=== PATIENT | female | born 1980 ===

== ENCOUNTER 2016-05-27 15:03 | Emergency (ER) | payer OTHER ==
[2016-05-27 15:03] VITALS: BMI 52.4
[2016-05-27 15:08] VITALS: TEMP 98.4
[2016-05-27] MEDS ORDERED: Albuterol-Ipratrop 3 mg / 0.5 (3 ml) UD IH STA (16:01)
[2016-05-27] MEDS ORDERED: Albuterol 0.083% Inhal Sol (2.5 mg/3 mL) UD IH STA (16:01)
--- NOTE | 2016-05-27 16:04 | C.PDOC ---
History Of Present Illness 36 yo female w/PMHx of asthma come in for evaluation of URI sx associated with nasal congestion, runny nose, dry cough for past 2 days. Pt sts, since yesterday developed asthma sx associated with chest tightness and wheezing, (+) productive cough with clear sputum. Admits, (+) sick contact family member with similar sx. Otherwise, pt denies high fever, chills, headache, dizziness, neck pain, drooling, dyspnea, SOB, abd. pain, N/V/D, back pain, UTI sx. Ambulate to ED, not n respiratory distress. Time Seen by Provider: 05/27/16 15:26 Chief Complaint (Nursing): Flu-like Symptoms History Per: Patient History/Exam Limitations: no limitations Onset/Duration Of Symptoms: Days Current Symptoms Are (Timing): Still Present Associated Symptoms: Cough, Nasal Congestion. denies: Fever, Nausea, Vomiting, Diarrhea Recent travel outside of the [place]: No Past Medical History Reviewed: Historical Data, Nursing Documentation, Vital Signs Vital Signs: Last Vital Signs Temp 98.4 F 05/27/16 15:08 Pulse 90 05/27/16 15:08 Resp 18 05/27/16 15:08 BP 143/84 05/27/16 15:08 Pulse Ox 98 05/27/16 16:25 - Medical History PMH: Anemia, Asthma, Bronchitis, HTN, Hypothyroidism Surgical History: Coronary Stent (Cardiac Catheter), Tonsillectomy - [facility] Procedures CORONAR ARTERIOGR-2 CATH (01/19/14) LEFT HEART CARDIAC CATH (01/19/14) LT HEART ANGIOCARDIOGRAM (01/19/14) Family History: States: Unknown Family Hx - Social History Hx Tobacco Use: No Hx Alcohol Use: No Hx Substance Use: No - Immunization History Hx Tetanus Toxoid Vaccination: No Hx Influenza Vaccination: Yes Hx Pneumococcal Vaccination: No Review Of Systems Except As Marked, All Systems Reviewed And Found Negative. Constitutional: Negative for: Fever, Chills ENT: Positive for: Nose Discharge, Nose Congestion Respiratory: Positive for: Cough, Wheezing, Other (chest tightness). Negative for: Shortness of Breath Gastrointestinal: Negative for: Nausea, Vomiting, Abdominal Pain, Diarrhea Genitourinary: Negative for: Dysuria, Hematuria Musculoskeletal: Negative for: Neck Pain, Back Pain Neurological: Negative for: Headache Physical Exam - Physical Exam Appears: Well, Non-toxic, No Acute Distress Skin: Normal Color, Warm, Dry, No Rash Eye(s): bilateral: Normal Inspection Ear(s): Bilateral: Normal Nose: Discharge (scant B/L clear rhinorhea) Oral Mucosa: Moist, No Drooling Throat: Normal, No Erythema, No Exudate, No Drooling Neck: Normal, Normal ROM, Supple Cardiovascular: Rhythm Regular Respiratory: No Decreased Breath Sounds, No Accessory Muscle Use, No Rales, No Rhonchi, No Stridor, Wheezing (Left base expiratory wheezing, B/S equal B/L.) Gastrointestinal/Abdominal: Normal Exam, Soft, No Tenderness Back: Normal Inspection Extremity: Normal ROM, No Pedal Edema Neurological/Psych: Oriented x3, Normal Speech ED Course And Treatment O2 Sat by Pulse Oximetry: 98 (on room air) Pulse Ox Interpretation: Normal Progress Note: On re-evaluation, pt is afebrile, hemodynamicaly stable. Non- toxic. Pt reorts, moderate improvemnet in asthma sx after ED treatment. Tolerate PO well in ED. Pulseox 98% RA. ENT: no acute findings. neck: (-) meningeal sign,. Lungs: mo dimprovemnet in wheezing, BS equal B/L. Abd: benign. Pt has clinical findings c/w acute bronchitis, asthma exacerbation. Pt advised. ref. to f/u with PMD in 1-2 days for re-eval. return if any worsening or new changes. Disposition Counseled Patient/Family Regarding: Studies Performed, Diagnosis, Need For Followup, Rx Given - Disposition Referrals: [facility] at [facility] [Outside] Disposition: HOME/ ROUTINE Disposition Time: 16:30 Condition: STABLE Additional Instructions: Encourage fluids take medication as prescribed nebulizer treatment every 6 hours Follow up with PMD in 2-3 days for re-evaluation. Return to ED if nay worsening or new changes. 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 - Scribe Statement The provider has reviewed the documentation as recorded by the Scribcrystal Alfaro All medical record entries made by the Thiagoibcrystal were at my direction and personally dictated by me. I have reviewed the chart and agree that the record accurately reflects my personal performance of the history, physical exam, medical decision making, and the department course for this patient. I have also personally directed, reviewed, and agree with the discharge instructions and disposition.
[2016-05-27] MEDS ORDERED: Albuterol-Ipratrop 3 mg / 0.5 (3 ml) UD ONE (16:31)
[2016-05-27] MEDS ORDERED: Albuterol 0.083% Inhal Sol (2.5 mg/3 mL) UD ONE (16:31)
[2016-05-27 17:18] VITALS: BP 113/85; PULSE 76; RESP 16; O2SAT 99
== END 2016-05-27 17:17 | disposition home or self-care (01) ==
LOC: C.ER 15:03
DX: J20.9 Acute bronchitis, unspecified (principal); J45.901 Unspecified asthma with (acute) exacerbation

== ENCOUNTER 2016-09-08 06:55 | Day surgery (SDC) | payer OTHER ==
[2016-09-01 13:17] VITALS: BMI 43.0
[2016-09-08] MEDS ORDERED: Propofol 10 mg/ml Inj (20 ML) ONE (08:16)
[2016-09-08] MEDS ORDERED: Midazolam 2 MG/2 ML VIAL ONE (08:16)
[2016-09-08] MEDS ORDERED: Succinylcholine Chloride 20 mg/ml Syr (5 ml) IV ONE (08:19)
[2016-09-08] MEDS ORDERED: Gentamicin 80 mg in 0.9% NS 80 MG/100 ML BAG IVPB ONE (08:27)
[2016-09-08] MEDS ORDERED: Clindamycin 600mg/50ml D5W 600 MG/50 ML VIAL IVPB ONE (08:46)
[2016-09-08] MEDS ORDERED: HYDROmorphone 0.5 mg/0.5 ml ISec IVP PRN (09:03)
[2016-09-08 11:23] VITALS: BP 120/75; PULSE 83; RESP 16; TEMP 97.2; O2SAT 98
--- NOTE | 2016-09-09 02:58 | OP ---
PROCEDURE DATE: 09/08/2016 PREOPERATIVE DIAGNOSES: Fibroid uterus, menorrhagia. POSTOPERATIVE DIAGNOSES: Fibroid uterus, menorrhagia. PROCEDURE: Hysteroscopic myomectomy/polypectomy. FINDINGS: A 1-cm anterior submucosal myoma/polyp, which was resected. Remainder of the endometrial cavity and endocervical canal were normal. SURGEON: Selina Hazel MD TYPE OF ANESTHESIA: General. ESTIMATED BLOOD LOSS: Less than 1 mL COMPLICATIONS: Nil. DESCRIPTION OF PROCEDURE: After the risks, benefits, and alternatives of the planned procedure including but not limited to infection, hemorrhage, deep vein thrombosis, atelectasis, pneumonia, pulmonary embolism, damage to the bladder, damage to the ureter, renal insufficiency, renal failure, wound infection, wound dehiscence, incisional hernia, clot formation, damage to the large and small intestine, damage to the inferior vena cava and aorta requiring extensive repair, anesthesia complications, electrolyte imbalance, possibility of , recurrence and persistence of myoma have been explained to the patient and all her questions were answered, informed consent was obtained. The patient was taken to the operating room in a stable condition and after appropriate level of general anesthesia, she was prepped and draped in a sterile fashion after having been placed in a dorsal lithotomy position. The bladder was emptied by straight catheterization. Examination under anesthesia reported normal-sized uterus, anteverted with no adnexal masses. A weighted speculum was inserted into the vagina. The anterior lip of the cervix was crossed using a single tooth tenaculum and endocervical curettage was performed and scant tissue was obtained. The uterus was then sounded to 8 cm. Cervix was dilated to #16 Hanks dilator. A hysteroscope was inserted into the uterus and using a MyoSure device, a 1-cm anterior submucosal myoma was resected out of the level of the endometrium with good hemostasis. The remainder of the endometrial cavity was normal. The hysteroscope was then removed, a gentle endometrial curettage was performed and scant tissue was obtained. At the end of the procedure, the instruments were removed from the vagina. There was good hemostasis. The patient was then transferred to the recovery room in a stable condition. Sponge, needle and instrument counts were correct x2. There were no complications. Selina Hazel MD [facility] # [id number]
== END 2016-09-08 11:24 | disposition home or self-care (01) ==
LOC: C.SDS 06:55
PROVIDERS: ATTEND Obstetrics & Gynecology Reproductive Endocrinology
DX: D25.0 Submucous leiomyoma of uterus (principal); N92.0 Excessive and frequent menstruation with regular cycle
CPT/HCPCS: 58120; 58561; 88305; J1100; J1580; J2001; J2250; J2405; J2704; J3010

== ENCOUNTER 2016-11-10 20:57 | Emergency (ER) | payer OTHER ==
[2016-11-10 20:57] VITALS: BMI 43.0
[2016-11-10] MEDS ORDERED: Sodium Chloride 0.9% 1,000 ML IV ONE (21:35)
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
[2016-11-10 21:49] LABS: BASO % 0.3 % (0.0-2.0); EOS # 0.2 K/uL (0.0-0.7); EOS % 2.6 % (0.0-4.0); LYMPH # 2.1 K/uL (1.0-4.3); LYMPH % 28.8 % (20.0-40.0); MEAN CELL VOLUME 85.5 fL (81.0-99.0); MEAN CORPUSCULAR HEMOGLOBIN 28.6 pg (27.0-31.0); MEAN CORPUSCULAR HGB CONC 33.5 g/dL (33.0-37.0); MEAN PLATELET VOLUME 8.6 fL (7.2-11.7); MONO # 0.6 K/uL (0.0-0.8); MONO % 7.9 % (0.0-10.0); NRBC % 0.1 % (0.0-2.0); RED CELL DISTRIBUTION WIDTH 17.3 % (11.5-14.5); WHITE BLOOD COUNT 7.3 K/uL (4.8-10.8)
[2016-11-10 21:54] LABS: URINE BILIRUBIN NEGATIVE (NEGATIVE); URINE BLOOD 3+ (NEGATIVE); URINE COLOR Straw (YELLOW); URINE GLUCOSE (UA) NORMAL (Normal); URINE KETONE NEGATIVE (NEGATIVE); URINE LEUKOCYTE ESTERASE TRACE Leu/uL (Negative); URINE PROTEIN NEGATIVE (NEGATIVE); URINE UROBILINOGEN NORMAL mg/dL (0.2-1.0); WBC URINE 2 /hpf (0-5)
[2016-11-10 21:58] LABS: CHLORIDE 103 mmol/L (98-107); POTASSIUM 3.7 mmol/L (3.6-5.2); SODIUM 137 mmol/L (132-148)
[2016-11-10 22:00] LABS: ALB/GLOB RATIO 1.4 (1.0-2.1); ALKALINE PHOSPHATASE 71 U/L (38-126); AST/SGOT 22 U/L (14-36); BILIRUBIN,TOTAL 0.6 mg/dL (0.2-1.3); CARBON DIOXIDE 24 mmol/L (22-30); GFR AFRICAN-AMERICAN > 60; TOTAL PROTEIN 6.9 g/dL (6.3-8.3)
[2016-11-10 22:01] LABS: ALT/SGPT 26 U/L (9-52); BLOOD UREA NITROGEN 10 mg/dL (7-17); CALCIUM 8.9 mg/dl (8.6-10.4); GLUCOSE,RANDOM 102 mg/dL (65-105)
[2016-11-10 22:15] LABS: RBC URINE 4 /hpf (0-3)
--- NOTE | 2016-11-10 22:59 | US ---
EXAM: US First Trimester, Transabdominal EXAM DATE/TIME: 11/10/2016 9:39 PM CLINICAL HISTORY: 36 years old, female; Signs and symptoms; Lmp or gestational age (in weeks): Unknown lmp; Other: Vag bleed; ; Additional info: 10 wks, , bleeding TECHNIQUE: Real-time transabdominal obstetrical ultrasound of the maternal pelvis and a first trimester with image documentation. COMPARISON: There are no prior studies for comparison. FINDINGS: Gestation: There is a single gestational sac in the uterus.Gestational sac has mean diameter 15.9 mm. A yolk sac is present, internal diameter measures approximately [address] [address] rump length measures 32.9 mm. There is a heart rate of 135 beats per minute. Uterus: Uterus measures approximately 15.7 x 8.3 x 10 cm. In cervix measures approximately 3.8 cm in length. There is an anterior fundal fibroid, 3.3 x 2.3 x 3.2 cm. Ovaries: Right ovary could not be identified. Left ovary measures approximately 3.4 x 2.3 x 3.3 cm. Free fluid: There is no free fluid. IMPRESSION: 10 week 4 day single living intrauterine gestation, estimated date of delivery 06/04/17
[2016-11-10 23:27] VITALS: BP 141/89; PULSE 80; RESP 16; TEMP 97.5; O2SAT 100
== END 2016-11-10 23:28 | disposition home or self-care (01) ==
LOC: C.ER 20:57
DX: O20.0 Threatened abortion (principal); Z3A.10 10 weeks gestation of pregnancy
CPT/HCPCS: 76801; 80053; 81001; 84702; 85025; 85610; 85730; 86850; 86900; 96360; 99284; J7040

== ENCOUNTER 2016-11-20 08:45 | Emergency (ER) | payer OTHER ==
[2016-11-20 08:56] VITALS: BMI 45.1
[2016-11-20 09:00] VITALS: BP 135/85; PULSE 78; RESP 18; TEMP 97.7; O2SAT 100
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
== END 2016-11-20 12:03 | disposition home or self-care (01) ==
LOC: C.ER 08:45
DX: O92.29 Other disorders of breast associated with pregnancy and the puerperium (principal); Z3A.13 13 weeks gestation of pregnancy; V49.40XA Driver injured in collision with unspecified motor vehicles in traffic accident, initial encounter

== ENCOUNTER 2017-03-16 11:41 | Emergency (ER) | payer MEDICAID, OTHER ==
[2017-03-16 11:41] VITALS: BMI 45.1
[2017-03-16 11:48] VITALS: BP 152/102; PULSE 99; RESP 20; TEMP 99.1; O2SAT 98
--- NOTE | 2017-03-16 12:22 | C.PDOC ---
History Of Present Illness 37-year-old female, presents to the emergency department with complaints of a subjective fever, cough, and left ear ache for the past several days. Patient also notes she missed her menstrual period this month and would like to know if she is . Denies any vomiting, dizziness, back pain, symptoms, change in bowel habits. Time Seen by Provider: 03/16/17 11:59 Chief Complaint (Nursing): Fever History Per: Patient History/Exam Limitations: no limitations Onset/Duration Of Symptoms: Days Current Symptoms Are (Timing): Still Present Past Medical History Reviewed: Historical Data, Nursing Documentation, Vital Signs Vital Signs: Last Vital Signs Temp 99.1 F 03/16/17 11:46 Pulse 99 H 03/16/17 11:46 Resp 20 03/16/17 11:46 BP 152/102 H 03/16/17 11:46 Pulse Ox 98 03/16/17 12:22 - Medical History PMH: Anemia, Asthma, Bronchitis, HTN Surgical History: Tonsillectomy - [facility] Procedures CORONAR ARTERIOGR-2 CATH (01/19/14) LEFT HEART CARDIAC CATH (01/19/14) LT HEART ANGIOCARDIOGRAM (01/19/14) Family History: States: No Known Family Hx - Social History Hx Tobacco Use: No Hx Alcohol Use: No Hx Substance Use: No - Immunization History Hx Tetanus Toxoid Vaccination: Yes Hx Influenza Vaccination: Yes Hx Pneumococcal Vaccination: Yes Review Of Systems Constitutional: Positive for: Fever, Malaise. Negative for: Weakness ENT: Positive for: Ear Pain, Throat Pain Respiratory: Positive for: Cough Gastrointestinal: Negative for: Vomiting Genitourinary: Negative for: Vaginal Discharge, Vaginal Bleeding Musculoskeletal: Negative for: Back Pain Neurological: Negative for: Headache, Dizziness Physical Exam - Physical Exam Appears: Non-toxic, No Acute Distress Skin: Warm, Dry, No Rash Eye(s): bilateral: Normal Inspection Ear(s): Left: Other (Fluid behind left TM, non erythematous), Bilateral: Normal Nose: Normal Oral Mucosa: Moist Lips: Normal Appearing Throat: Erythema, No Exudate (uvula midline. Tonsils symmetric. ) Neck: Normal ROM Chest: Symmetrical Cardiovascular: Rhythm Regular, No Murmur Respiratory: Normal Breath Sounds, No Accessory Muscle Use Extremity: Normal ROM Neurological/Psych: Oriented x3 ED Course And Treatment O2 Sat by Pulse Oximetry: 98 Disposition - Disposition Referrals: [facility] at [facility] [Outside] Disposition: HOME/ ROUTINE Disposition Time: 12:19 Condition: GOOD Additional Instructions: Please follow up with your doctor. Return to the ER for any worsening symptoms or for any other concerns. Prescriptions: Azithromycin 250 mg PO DAILY #6 tab Losartan [Cozaar] 50 mg PO DAILY #30 tab Instructions: Earache (ED) Forms: General Discharge Instructions, [facility] (Sinhala), Work Excuse - Clinical Impression Clinical Impression: URI (upper respiratory infection), Earache - Scribe Statement The provider has reviewed the documentation as recorded by the Scribe (Rowdy Blackwell) All medical record entries made by the Scribe were at my direction and personally dictated by me. I have reviewed the chart and agree that the record accurately reflects my personal performance of the history, physical exam, medical decision making, and the department course for this patient. I have also personally directed, reviewed, and agree with the discharge instructions and disposition.
== END 2017-03-16 12:39 | disposition home or self-care (01) ==
LOC: C.ER 11:41
DX: J06.9 Acute upper respiratory infection, unspecified (principal); H92.02 Otalgia, left ear

== ENCOUNTER 2017-10-24 17:15 | Emergency (ER) | payer MEDICAID, OTHER ==
[2017-10-24 17:16] VITALS: BMI 45.1
[2017-10-24 17:27] VITALS: BP 142/80; PULSE 86; RESP 18; TEMP 98.5; O2SAT 99
[2017-10-24] MEDS ORDERED: Neomycin/Polymyxin/Hydrocort Otic Soln BOTTLE AU STA (17:51)
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
== END 2017-10-24 18:12 | disposition home or self-care (01) ==
LOC: C.ER 17:15
DX: H66.90 Otitis media, unspecified, unspecified ear (principal); I10 Essential (primary) hypertension